=== PATIENT | male | born 1950 | race Caucasian/White ===

== ENCOUNTER 2018-02-05 19:49 | Inpatient (IN) | payer OTHER, MEDICARE ==
--- NOTE | 2018-02-05 21:21 | RADIOLOGY REPORT (SQ) ---
EXAM DESCRIPTION: RIBS LEFT W/PA CHEST COMPLETED DATE/TIME: 02/05/2018 9:07 pm REASON FOR STUDY: fall COMPARISON: None. TECHNIQUE: Frontal view of the chest and additional views of the left ribs acquired. NUMBER OF VIEWS: Four view. LIMITATIONS: None. FINDINGS: FRONTAL CXR: No pneumothorax. No pleural effusion. No atelectasis or infiltrates. RIBS: Fractures of the 7th 8th and 9th posterior left ribs. OTHER: No other significant finding. IMPRESSION: No pneumothorax. Fractures of the 7th 8th and 9th posterior left ribs. COMMENT: SITE OF TRAUMA/COMPLAINT MARKED/STAMP COMPLETED: Yes TECHNICAL DOCUMENTATION: JOB ID: [id number] [employer]- All Rights Reserved Reading location - IP/workstation name: [email or web address]
[2018-02-05] MEDS ORDERED: OXYCODONE-ACETAMINOPHEN 5-325 MG TABLET PO ONE (22:41)
--- NOTE | 2018-02-05 22:45 | ER Document Report ---
ED Medical Screen (RME) - General Chief Complaint: Low Back Pain Stated Complaint: LEFT SIDE PAIN Time Seen by Provider: 02/05/18 22:33 Notes: Patient is a 59-year-old male who fell in the shower earlier this afternoon approximately 330. Patient states that he has left chest wall pain. Denies any shortness of breath, cough, chest pain. Denies any nausea, vomiting, abdominal pain. Patient denies any head injury, LOC. Patient on blood thinners. TRAVEL OUTSIDE OF THE [place] IN LAST 30 DAYS: No Past Medical History Renal/ Medical History: Denies: Hx Peritoneal Dialysis Physical Exam - Vital signs Vitals: Temp Pulse Resp BP Pulse Ox 97.9 F 76 18 138/70 H 97 02/05/18 20:27 02/05/18 20:27 02/05/18 20:02/05/18 20:02/05/18 20:27 - Notes Notes: PHYSICAL EXAMINATION: GENERAL: Well-appearing, well-nourished and in no acute distress. GCS 15 HEAD: Atraumatic, normocephalic. EYES: Pupils equal round and reactive to light, extraocular movements intact, sclera anicteric, conjunctiva are normal. NECK: Normal range of motion, supple without lymphadenopathy. Trachea midline LUNGS: Breath sounds clear to auscultation bilaterally and equal. No wheezes rales or rhonchi. Tender chest wall with superficial abrasion no evidence of flail segment, crepitus. HEART: Regular rate and rhythm without murmurs. Pulses intact all throughout. Musculoskeletal: Normal range of motion, no pitting or edema. No cyanosis. Hip non tender, stable. NEUROLOGICAL: Cranial nerves grossly intact. Normal speech, SKIN: Warm, No active bleeding Course - Vital Signs Vital signs: Temp Pulse Resp BP Pulse Ox 97.9 F 76 18 138/70 H 97 02/05/18 20:27 02/05/18 20:27 02/05/18 20:27 02/05/18 20:02/05/18 20:27
[2018-02-05] MEDS ORDERED: HYDROMORPHONE HCL INJ/PF 2 MG/ML AMPULE IV ONE (22:58)
[2018-02-05] MEDS ORDERED: ONDANSETRON HCL INJ/PF 4 MG/2 ML SDV IV ONE (22:58)
--- NOTE | 2018-02-05 23:02 | ER Document Report ---
ED Fall - General Chief Complaint: Low Back Pain Stated Complaint: LEFT SIDE PAIN Time Seen by Provider: 02/05/18 22:33 Mode of Arrival: Ambulatory Information source: Patient TRAVEL OUTSIDE OF THE [place] IN LAST 30 DAYS: No - HPI Patient complains to provider of: fall, left posterior rib pain Notes: Patient is here with his at the bedside. He is here with complaints of left posterior chest wall pain. Patient states that he was in the shower when he slipped and fell and injured his left posterior ribs. He denies striking his head. He denies being on blood thinning medications. Complains of significant pain to the posterior ribs. Pain is worse with any sort of movement. He denies any shortness of breath. He denies any abdominal pain. He denies any nausea, vomiting, diarrhea. He denies this, tingling, weakness. He denies any blurred or loss vision. No headache. No numbness, tingling, weakness. No dysuria. No other complaints at this time. Patient denies any other injuries at this time. Past Medical History - Social History Smoking Status: Current Every Day Smoker Family History: Reviewed & Not Pertinent Patient has suicidal ideation: No Patient has homicidal ideation: No Renal/ Medical History: Denies: Hx Peritoneal Dialysis Review of Systems - Review of Systems -: Yes All other systems reviewed and negative Physical Exam - Vital signs Vitals: Temp Pulse Resp BP Pulse Ox 97.9 F 76 18 138/70 H 97 02/05/18 20:27 02/05/18 20:27 02/05/18 20:27 02/05/18 20:27 02/05/18 20:27 - Notes Notes: GENERAL: alert, cooperative, nontoxic, no distress. HEAD: normocephalic, atraumatic EYES: conjunctiva pink without discharge, no external redness or swelling. PERRL , EOM'S INTACT EARS: no external swelling, no external redness. No hemotympanum EM NOSE: atraumatic, no external swelling. No bleeding MOUTH/THROAT: mucous membranes moist and pink, posterior pharynx without erythema, swelling, exudate. No trismus or drooling. NECK: soft, supple, full range of motion, no meningismus. No midline tenderness step-offs or crepitus to palpation of the cervical spine. CHEST: no distress, lungs clear and equal throughout. No wheezing, rales, rhonchi. Abrasion and ecchymosis to the left posterior ribs. No crepitus. Significant tenderness to palpation of this area. CARDIAC: regular rate and rhythm, no murmur, normal capillary refill, normal pulses. No peripheral edema noted. ABDOMEN: Soft, nontender. No ecchymosis. BACK: Limited range of motion secondary to left posterior rib pain. No midline tenderness step-offs or crepitus to palpation of the thoracic or lumbar spine. EXTREMITIES: full range of motion of all extremities. No redness, no swelling. NEURO: alert and oriented x 3, no focal deficits, full range of motion of all extremities. Cranial nerves II through XII are grossly intact. Normal sensation bilaterally. Normal strength bilaterally. PYSCH: appropriate mood, affect. Patient is cooperative. SKIN: pink, warm, dry, no rash. Course - Re-evaluation Re-evalutation: 02/06/18 02:49 Patient is nontoxic appearing with stable vitals. The patient is noted to have 3 rib fractures with small pleural effusion on CT. Abdomen pelvis are negative. Labs are otherwise unremarkable. The patient was given Dilaudid for pain control. At this point patient states that he has feels like he is having way too much pain to be discharged home and is not able to ambulate without significant pain. Due to the patient's pain complaints and his 's concern for potentially not being able to get him into the condo, I have consulted the hospitalist for potential admission for pain control for rib fractures. Patient is being seen and evaluated by the nighttime hospitalist at this time. 02/06/18 02:55 Dr Fuentes agrees with admission. - Vital Signs Vital signs: Temp Pulse Resp BP Pulse Ox 97.9 F 76 18 138/70 H 97 02/05/18 20:27 02/05/18 20:27 02/05/18 20:27 02/05/18 20:27 02/05/18 20:27 - Laboratory Result Diagrams: 02/05/18 23:26 02/05/18 23:26 Laboratory results interpreted by me: 02/05/18 02/05/18 23:26 23:26 RBC 4.29 L MCV 100 H MCH 34.3 H Sodium 129.1 L Chloride 93 L BUN 5 L Creatinine 0.51 L AST 72 H - Diagnostic Test Radiology reviewed: Image reviewed, Reports reviewed - Chest x-ray shows 3 rib fractures to the left posterior ribs. CT chest abdomen pelvis shows rib fractures with small pleural effusion. Discharge - Discharge Clinical Impression: Pleural effusion, Intractable pain Ribs, multiple fractures Qualifiers: Encounter type: initial encounter Fracture type: closed Laterality: left Qualified Code(s): S22.42XA - Multiple fractures of ribs, left side, initial encounter for closed fracture Condition: Stable Disposition: ADMITTED OBSERVATION Admitting Provider: Hospitalist Unit Admitted: Medical Floor
[2018-02-05 23:53] LABS: ABSOLUTE BASOPHILS # (AUTO) 0.1 10^3/uL (0.0-0.2); ABSOLUTE EOSINOPHILS # (AUTO) 0.1 10^3/uL (0.0-0.6); ABSOLUTE LYMPHOCYTES (AUTO) 1.8 10^3/uL (0.5-4.7); ABSOLUTE MONOCYTES (AUTO) 0.9 10^3/uL (0.1-1.4); ABSOLUTE NEUT (AUTO) 4.2 10^3/uL (1.7-8.2); BASOPHILS % (AUTO) 0.8 % (0-2); EOSINOPHILS % (AUTO) 1.3 % (0-6); HEMATOCRIT 42.8 % (37.9-51.0); HEMOGLOBIN 14.7 g/dL (13.5-17.0); LYMPHOCYTES % (AUTO) 25.5 % (13-45); MEAN CORPUSCULAR HEMOGLOBIN 34.3 pg (27.0-33.4); MEAN CORPUSCULAR HGB CONC 34.4 g/dL (32.0-36.0); MEAN CORPUSCULAR VOLUME 100 fl (80-97); MONOCYTES % (AUTO) 12.8 % (3-13); PLATELET COUNT 157 10^3/uL (150-450); RED BLOOD COUNT 4.29 10^6/uL (4.35-5.55); RED CELL DISTRIBUTION WIDTH 12.5 % (11.5-14.0); SEGMENTED NEUTROPHILS % (AUTO) 59.6 % (42-78); TOTAL CELLS COUNTED % (AUTO) 100 %
[2018-02-06 00:02] LABS: ALANINE AMINOTRANSFERASE 72 U/L (21-72); ALBUMIN 4.2 g/dL (3.5-5.0); ALKALINE PHOSPHATASE 94 U/L (38-126); ANION GAP 11 (5-19); ASPARTATE AMINO TRANSFERASE 72 U/L (17-59); BILIRUBIN,DIRECT 0.3 mg/dL (0.0-0.4); BILIRUBIN,TOTAL 0.7 mg/dL (0.2-1.3); BLOOD UREA NITROGEN 5 mg/dL (7-20); CALCIUM 9.5 mg/dL (8.4-10.2); CARBON DIOXIDE 25 mmol/L (22-30); CHLORIDE 93 mmol/L (98-107); GLUCOSE 93 mg/dL (75-110); SODIUM 129.1 mmol/L (137-145); TOTAL PROTEIN 6.9 g/dL (6.3-8.2)
--- NOTE | 2018-02-06 02:06 | RADIOLOGY REPORT (SQ) ---
EXAM DESCRIPTION: CT ABDOMEN AND PELVIS WITH CONTRAST CLINICAL HISTORY: fall, left posterior rib fractures bilateral lower abdominal pain. COMPARISON: None Available. TECHNIQUE: CT of the abdomen and pelvis performed following IV administration of 100 mL of Isovue-370. DLP: 1504.24 mGycm FINDINGS: Bones: No destructive bone lesions identified. Degenerative spondylosis of the thoracic spine. Nondisplaced fractures of the left lateral seventh through ninth rib fractures. Chest: Thyroid:No abnormalities of the visualized thyroid. Great Vessels:Great vessels have normal anatomic configuration. Thoracic Aorta: Atherosclerotic calcification of the thoracic aorta. Pulmonary arteries:The main pulmonary artery is not dilated. Heart: Coronary artery atherosclerosis. No cardiomegaly or significant pericardial effusion. Lymph Nodes:No enlarged mediastinal lymph nodes identified. Esophagus: Small hiatal hernia. Other:No additional findings. Lungs: Minimal left basilar atelectasis. Pleura: Small left pleural effusion. No pneumothorax identified. Trachea/Airways:No abnormalities of the visualized trachea or airways. Abdomen: Liver: The liver has normal size and density. No intrahepatic mass or biliary dilatation. Gallbladder: No calcified gallstones. Spleen, Pancreas, and Adrenal Glands: The spleen, pancreas, and adrenal glands are unremarkable. Kidneys: The kidneys have normal size and contour without evidence of solid mass or hydronephrosis. Bosniak class I left renal cyst. Mild inferior right renal ectopia. Vasculature: Aortoiliac atherosclerosis. IVC is unremarkable. The portal vein is patent. The proximal visceral and renal arteries are patent. Stomach: The stomach and duodenum have normal course. Other: No free intraperitoneal air. No free fluid or lymphadenopathy. Pelvis: Bladder: Urinary bladder is unremarkable. Bowel: Scattered diverticula of the colon without pericolic fat stranding. No dilated loops of large or small bowel. Appendix: The appendix is not definitely identified. No evidence of appendicitis. Pelvis: Prostate is not enlarged. IMPRESSION: 1. Acute nondisplaced fractures of the lateral left seventh and ninth ribs. 2. Minimal left-sided atelectasis and small left pleural effusion. No pneumothorax. 3. No acute abnormalities of the abdomen or pelvis identified. 4. Diverticulosis without evidence of acute diverticulitis. 5. Coronary artery atherosclerosis. 6. Small hiatal hernia. This exam was performed according to our departmental dose-optimization program, which includes automated exposure control, adjustment of the mA and/or kV according to patient size and/or use of iterative reconstruction technique.
[2018-02-06] MEDS ORDERED: ONDANSETRON HCL INJ/PF 4 MG/2 ML SDV IV PRN ×2 (03:36→08:30)
[2018-02-06] MEDS ORDERED: OXYCODONE-ACETAMINOPHEN 5-325 MG TABLET PO PRN ×2 (03:36→15:06)
[2018-02-06] MEDS ORDERED: LORAZEPAM INJ 2 MG/1 ML VIAL IV PRN ×2 (03:39→15:03)
[2018-02-06] MEDS ORDERED: THIAMINE HCL 100 MG, FOLIC ACID 1 MG in NORMAL SALINE 250 ML IV ONE ×2 (04:00→04:15)
[2018-02-06] MEDS ORDERED: THIAMINE HCL INJ 200 MG/2 ML VIAL IV PRN (04:08)
[2018-02-06] MEDS ORDERED: FOLIC ACID INJ 5 MG/1 ML 10 ML VIAL IV PRN (04:09)
[2018-02-06] MEDS ORDERED: THIAMINE HCL INJ 200 MG/2 ML VIAL ONE (04:10)
[2018-02-06] MEDS ORDERED: FOLIC ACID INJ 5 MG/1 ML 10 ML VIAL ONE (04:11)
[2018-02-06] MEDS ORDERED: DIAZEPAM 5 MG TABLET PO ONE ×2 (04:15→15:15)
--- NOTE | 2018-02-06 04:57 | PDOC H&P ---
History of Present Illness Admission Date/PCP: 02/06/18 03:16 History of Present Illness: AKBAR CORONADO is a 67 year old male patient from [place] came to [place] for vacation. He presents with chief complaint of chest pain. Last night while taking shower, he slipped fell down and sustained injury to his left chest. Patient was thoroughly worked up including CT of the chest which revealed a nondisplaced fracture of the left lateral seventh through 9th ribs. Patient does not have any significant medical problem except daily alcohol consumption. He claims he drinks 10 cans of beer on a daily basis. During my encounter I seen patient with excruciating chest pain. At the time of injury no loss of consciousness, trauma to his head, or vomiting. No palpitation, chest pain or diaphoresis. Past Medical History Medical History: None Past Surgical History Past Surgical History: Reports: None Social History Smoking Status: Current Every Day Smoker Frequency of Alcohol Use: Heavy Family History Family History: Reviewed & Not Pertinent Parental Family History Reviewed: Yes Children Family History Reviewed: Yes Sibling(s) Family History Reviewed.: Yes Medication/Allergy Allergies/Adverse Reactions: No Known Allergies Allergy (Unverified 02/06/18 03:07) Review of Systems Constitutional: PRESENT: as per HPI Ears: PRESENT: as per HPI Cardiovascular: PRESENT: as per HPI Gastrointestinal: PRESENT: as per HPI Musculoskeletal: PRESENT: as per HPI Neurological: PRESENT: as per HPI Physical Exam Vital Signs: Temp Pulse Resp BP Pulse Ox 98 F 74 16 118/61 94 02/06/18 04:32 02/06/18 04:32 02/06/18 04:32 02/06/18 04:32 02/06/18 04:32 General appearance: PRESENT: no acute distress Head exam: PRESENT: atraumatic Respiratory exam: PRESENT: clear to auscultation lydia. ABSENT: rales, rhonchi, wheezes Cardiovascular exam: PRESENT: RRR. ABSENT: diastolic murmur, rubs, systolic murmur GI/Abdominal exam: PRESENT: normal bowel sounds, soft. ABSENT: distended, guarding, mass, organolmegaly, rebound, tenderness Musculoskeletal exam: PRESENT: other - Tenderness on his left chest Results Impressions: Ribs w/Chest X-Ray 02/05/18 00:00 IMPRESSION: No pneumothorax. Fractures of the 7th 8th and 9th posterior left ribs. Abdomen/Pelvis CT 02/06/18 00:00 IMPRESSION: 1. Acute nondisplaced fractures of the lateral left seventh and ninth ribs. 2. Minimal left-sided atelectasis and small left pleural effusion. No pneumothorax. 3. No acute abnormalities of the abdomen or pelvis identified. 4. Diverticulosis without evidence of acute diverticulitis. 5. Coronary artery atherosclerosis. 6. Small hiatal hernia. This exam was performed according to our departmental dose-optimization program, which includes automated exposure control, adjustment of the mA and/or kV according to patient size and/or use of iterative reconstruction technique. Chest CT 02/06/18 00:00 IMPRESSION: 1. Acute nondisplaced fractures of the lateral left seventh and ninth ribs. 2. Minimal left-sided atelectasis and small left pleural effusion. No pneumothorax. 3. No acute abnormalities of the abdomen or pelvis identified. 4. Diverticulosis without evidence of acute diverticulitis. 5. Coronary artery atherosclerosis. 6. Small hiatal hernia. This exam was performed according to our departmental dose-optimization program, which includes automated exposure control, adjustment of the mA and/or kV according to patient size and/or use of iterative reconstruction technique. Assessment & Plan - Diagnosis (1) Alcohol abuse Is this a current diagnosis for this admission?: Yes Plan: Patient advised to cut down his alcohol consumption. To prevent alcohol withdrawal patient has been started on as needed Ativan and scheduled diazepam. (3) Ribs, multiple fractures Qualifiers: Encounter type: initial encounter Fracture type: closed Laterality: left Qualified Code(s): S22.42XA - Multiple fractures of ribs, left side, initial encounter for closed fracture Is this a current diagnosis for this admission?: Yes Plan: Pain controlled - Time Critical Time spent with patient: 25-34 minutes
[2018-02-06] MEDS ORDERED: LANSOPRAZOLE 30 MG TAB.RAP.DR PO SCH (06:00)
[2018-02-06] MEDS ORDERED: ENOXAPARIN SODIUM INJ 40 MG/0.4 ML DISP.SYRIN SUBCUT SCH (10:00)
[2018-02-06] MEDS: NICOTINE 21 MG/24 HR PATCH.TD24 TD SCH (12:47)
[2018-02-06] MEDS ORDERED: ENOXAPARIN SODIUM INJ 40 MG/0.4 ML DISP.SYRIN SUBCUT ONE (13:00)
[2018-02-06 13:25] LABS: APPEARANCE,URINE CLEAR; BILIRUBIN,URINE NEGATIVE (NEGATIVE); COLOR,URINE YELLOW; GLUCOSE, URINE NEGATIVE (NEGATIVE); KETONES,URINE 20 mg/dL (NEGATIVE); LEUKOCYTE ESTERASE,URINE NEGATIVE (NEGATIVE); NITRITE,URINE NEGATIVE (NEGATIVE); PROTEIN,URINE NEGATIVE (NEGATIVE); URINE SPECIFIC GRAVITY 1.023; UROBILINOGEN,URINE NEGATIVE mg/dL (<2.0)
[2018-02-06] MEDS ORDERED: DIAZEPAM 5 MG TABLET PO SCH (14:00)
--- NOTE | 2018-02-06 17:16 | PDOC CONSULTATION ---
History of Present Illness Admission Date/PCP: 02/06/18 03:16 Chest pain and hip pain. History of Present Illness: AKBAR CORONADO is a 67 year old male status post fall with bruising and pain in the left hip and also bruising on the left chest wall. Denies any numbness or tingling or paresthesias. Denies any shortness of breath. Fall occurred last night. Patient was brought to the ER where he was evaluated. Patient was admitted under hospitalist service but orthopedic consulted for the hematoma of the left hip. Denies any numbness or tingling or paresthesias and describes the pain mostly when he lays on it or weightbears. No pain in the groin. Past Surgical History Past Surgical History: Reports: None Social History Smoking Status: Current Every Day Smoker Cigarettes Packs Per Day: 0.5 Number of Years Smokin Last Time Smoked: 02/05/2018 Frequency of Alcohol Use: Heavy Hx Recreational Drug Use: No Drugs: None Hx Prescription Drug Abuse: No Family History Family History: None Parental Family History Reviewed: No Children Family History Reviewed: Yes Sibling(s) Family History Reviewed.: Yes Medication/Allergy Home Medications: No Home Medications 02/06/18 Allergies/Adverse Reactions: No Known Allergies Allergy (Unverified 02/06/18 03:07) Review of Systems Constitutional: ABSENT: anorexia, fever(s), weight gain, weight loss Eyes: ABSENT: visual disturbances Ears: ABSENT: hearing changes Nose, Mouth, and Throat: ABSENT: headache(s), sore throat Cardiovascular: ABSENT: edema, palpitations Respiratory: ABSENT: dyspnea, hemoptysis Gastrointestinal: ABSENT: hematemesis, nausea, vomiting Genitourinary: ABSENT: dysuria, hematuria Musculoskeletal: ABSENT: buckling, catching, deformity, dislocation Integumentary: PRESENT: lesions - 3 x 3 cm hematoma left hip with ecchymosis.. ABSENT: wounds Neurological: ABSENT: numbness, paresthesias, tingling Psychiatric: ABSENT: hallucinations, homidical ideation, suicidal ideation Endocrine: ABSENT: cold intolerance, heat intolerance Hematologic/Lymphatic: ABSENT: easy bleeding, lymphadenopathy Allergic/Immunologic: ABSENT: seasonal rhinorrhea Physical Exam Vital Signs: Temp Pulse Resp BP Pulse Ox 37.0 C 71 16 117/65 97 02/06/18 12:00 02/06/18 12:00 02/06/18 12:00 02/06/18 12:00 02/06/18 12:00 General appearance: PRESENT: no acute distress Eye exam: ABSENT: EOMI, nystagmus Ear exam: PRESENT: normal external ear exam Mouth exam: PRESENT: neck supple Neck exam: ABSENT: lymphadenopathy, tenderness, thyromegaly Respiratory exam: PRESENT: symmetrical, unlabored. ABSENT: accessory muscle use , tachypnea Pulses: PRESENT: +2 pedal pulses bilateral Vascular exam: PRESENT: normal capillary refill GI/Abdominal exam: PRESENT: soft. ABSENT: tenderness Musculoskeletal exam: PRESENT: full ROM, tenderness - Tenderness over the greater trochanter. Ecchymosis and small hematoma present. Neurovascular intact distally.. ABSENT: deformity Neurological exam: PRESENT: alert, awake, oriented to person, oriented to place , oriented to time, oriented to situation Psychiatric exam: PRESENT: appropriate affect, normal mood Skin exam: PRESENT: intact. ABSENT: erythema, rash, skin tears Adult Front & Back Image: 1 - Bruising and ecchymosis on the lateral aspect of the left hip. Full range of motion of the hip with no pain. No groin pain. Tender palpation of the hematoma and ecchymosis. Results Laboratory Results: 02/06/18 13:15 Urine Color YELLOW Urine Appearance CLEAR Urine pH 6.0 Ur Specific [place] 1.023 Urine Protein NEGATIVE Urine Glucose (UA) NEGATIVE Urine Ketones 20 H Urine Blood NEGATIVE Urine Nitrite NEGATIVE Ur Leukocyte Esterase NEGATIVE Urine WBC (Auto) 0 Urine RBC (Auto) 1 Impressions: Ribs w/Chest X-Ray 02/05/18 00:00 IMPRESSION: No pneumothorax. Fractures of the 7th 8th and 9th posterior left ribs. Abdomen/Pelvis CT 02/06/18 00:00 IMPRESSION: 1. Acute nondisplaced fractures of the lateral left seventh and ninth ribs. 2. Minimal left-sided atelectasis and small left pleural effusion. No pneumothorax. 3. No acute abnormalities of the abdomen or pelvis identified. 4. Diverticulosis without evidence of acute diverticulitis. 5. Coronary artery atherosclerosis. 6. Small hiatal hernia. This exam was performed according to our departmental dose-optimization program, which includes automated exposure control, adjustment of the mA and/or kV according to patient size and/or use of iterative reconstruction technique. Chest CT 02/06/18 00:00 IMPRESSION: 1. Acute nondisplaced fractures of the lateral left seventh and ninth ribs. 2. Minimal left-sided atelectasis and small left pleural effusion. No pneumothorax. 3. No acute abnormalities of the abdomen or pelvis identified. 4. Diverticulosis without evidence of acute diverticulitis. 5. Coronary artery atherosclerosis. 6. Small hiatal hernia. This exam was performed according to our departmental dose-optimization program, which includes automated exposure control, adjustment of the mA and/or kV according to patient size and/or use of iterative reconstruction technique. Assessment & Plan - Diagnosis (1) Hematoma Is this a current diagnosis for this admission?: Yes Plan: 67-year-old gentleman status post fall with ecchymosis bruising and small hematoma in the left thigh. Patient does not need any surgical intervention or evacuation of hematoma. This will resolve on its own and we observed in the next several weeks. Pertaining to the ribs I will defer that to general surgery. Although it is fracture in the bone will heal due to the fact this in the chest cavity is always concern for hemothorax and pneumothorax and this is out of the scope of my practice. Discussed with patient that pain and swelling will resolve and without time and just needs pain control weight-bear as tolerated and follow-up as needed.
--- NOTE | 2018-02-06 17:17 | Progress Note ---
Provider Note Provider Note: Agree with supervisor shipfitters plan of care for AKBAR CORONADO, a 67 year old male who slipped and fell getting out of the bathtub, sustaining an injury to his left chest. CT confirms nondisplaced fracture of the left lateral seventh through ninth ribs. According to the , the patient has a history of heavy EtOH use. She states he drinks approximately 10 beers per day. Additionally, the endorses the patient smokes roughly half a pack per day for the last 20 years. 1.ETOH ABUSE: 10 drinks per day. PRN IV Ativan and scheduled PO Valium. Maintenance IVF 2. RIB FRACTURES: s/p mechanical fall. Dilaudid and percocet for pain control. Initiate lidoderm patch. Consulted ortho and surgery to see if they have any specific recommendations for his rehabilitation. 3. TOBACCO USE: initiate nicotine patch
[2018-02-06] MEDS ORDERED: LIDOCAINE 5% (700 MG) TRANSDERMAL ADH..PATCH TP ONE (20:00)
[2018-02-06] MEDS ORDERED: MORPHINE SULFATE 10 MG/ML INJ IV PRN (20:18)
[2018-02-06] MEDS: NORMAL SALINE 1000 ML 1,000 ML IV PRN (20:25)
--- NOTE | 2018-02-06 20:30 | PDOC CONSULTATION ---
Consultation Consult Date: 02/06/18 Consult reason:: non displaced fx left 7th-9th ribs History of Present Illness Admission Date/PCP: 02/06/18 03:16 History of Present Illness: AKBAR CORONADO is a 67 year old male who sustained a fall and injured left ribs likely on the edge of bathtub the night of 02/05/18. C/O severe left chest pains and went to ED where a CT scan of the chest showed a non displaced lateral 7th - 9th ribs fx. Drinks about 10 bottles of beer a day. Past Surgical History Past Surgical History: Reports: None Social History Smoking Status: Current Every Day Smoker Cigarettes Packs Per Day: 0.5 Number of Years Smokin Last Time Smoked: 02/05/2018 Frequency of Alcohol Use: Heavy Hx Recreational Drug Use: No Drugs: None Hx Prescription Drug Abuse: No Family History Family History: None Parental Family History Reviewed: Yes Children Family History Reviewed: No Sibling(s) Family History Reviewed.: No Medication/Allergy Home Medications: No Home Medications 02/06/18 Allergies/Adverse Reactions: No Known Allergies Allergy (Unverified 02/06/18 03:07) Review of Systems Constitutional: PRESENT: other - no chills/fever Eyes: PRESENT: other - no visual/hearing changes Cardiovascular: PRESENT: chest pain - especially on coughing Respiratory: PRESENT: cough Gastrointestinal: PRESENT: other - no abdominal pains Genitourinary: PRESENT: other - no dysuria Neurological: PRESENT: other - no seizures Endocrine: PRESENT: other - no polyuria Hematologic/Lymphatic: PRESENT: other - no easy bruising Physical Exam Vital Signs: Temp Pulse Resp BP Pulse Ox 98.6 F 71 16 117/65 97 02/06/18 12:00 02/06/18 12:00 02/06/18 12:00 02/06/18 12:00 02/06/18 12:00 Intake & Output 02/05/18 02/06/18 02/07/18 06:59 06:59 06:59 Intake Total 100 Output Total 100 Balance 0 General appearance: PRESENT: mild distress Head exam: PRESENT: atraumatic Eye exam: PRESENT: conjunctiva pink Mouth exam: PRESENT: moist Neck exam: PRESENT: full ROM Respiratory exam: PRESENT: chest wall tenderness - left lateral chest, clear to auscultation lydia Cardiovascular exam: PRESENT: RRR Pulses: PRESENT: normal radial pulses Vascular exam: PRESENT: normal capillary refill GI/Abdominal exam: PRESENT: soft Rectal exam: PRESENT: deferred Extremities exam: PRESENT: full ROM Musculoskeletal exam: PRESENT: ambulatory Neurological exam: PRESENT: alert, oriented to person, oriented to place, oriented to time, oriented to situation Psychiatric exam: PRESENT: appropriate affect Skin exam: PRESENT: normal color, warm Results Laboratory Results: 02/06/18 13:15 Urine Color YELLOW Urine Appearance CLEAR Urine pH 6.0 Ur Specific [place] 1.023 Urine Protein NEGATIVE Urine Glucose (UA) NEGATIVE Urine Ketones 20 H Urine Blood NEGATIVE Urine Nitrite NEGATIVE Ur Leukocyte Esterase NEGATIVE Urine WBC (Auto) 0 Urine RBC (Auto) 1 Impressions: Ribs w/Chest X-Ray 02/05/18 00:00 IMPRESSION: No pneumothorax. Fractures of the 7th 8th and 9th posterior left ribs. Abdomen/Pelvis CT 02/06/18 00:00 IMPRESSION: 1. Acute nondisplaced fractures of the lateral left seventh and ninth ribs. 2. Minimal left-sided atelectasis and small left pleural effusion. No pneumothorax. 3. No acute abnormalities of the abdomen or pelvis identified. 4. Diverticulosis without evidence of acute diverticulitis. 5. Coronary artery atherosclerosis. 6. Small hiatal hernia. This exam was performed according to our departmental dose-optimization program, which includes automated exposure control, adjustment of the mA and/or kV according to patient size and/or use of iterative reconstruction technique. Chest CT 02/06/18 00:00 IMPRESSION: 1. Acute nondisplaced fractures of the lateral left seventh and ninth ribs. 2. Minimal left-sided atelectasis and small left pleural effusion. No pneumothorax. 3. No acute abnormalities of the abdomen or pelvis identified. 4. Diverticulosis without evidence of acute diverticulitis. 5. Coronary artery atherosclerosis. 6. Small hiatal hernia. This exam was performed according to our departmental dose-optimization program, which includes automated exposure control, adjustment of the mA and/or kV according to patient size and/or use of iterative reconstruction technique. Assessment & Plan - Time Time Spent: 30 to 50 Minutes - Plan Summary Plan Summary: Agree with anti alcohol withdrawal mx Pain mx with scheduled percocet and prn Morphine Incentive spirometry
[2018-02-07] MEDS: DIAZEPAM 5 MG TABLET PO SCH ×2 (00:29→07:59)
[2018-02-07] MEDS: OXYCODONE-ACETAMINOPHEN 5-325 MG TABLET PO SCH ×3 (00:34→07:58)
[2018-02-07] MEDS: NORMAL SALINE 1000 ML 1,000 ML IV PRN (04:13)
[2018-02-07 05:57] LABS: HEMATOCRIT 37.6 % (37.9-51.0); HEMOGLOBIN 13.2 g/dL (13.5-17.0); MEAN CORPUSCULAR HEMOGLOBIN 35.1 pg (27.0-33.4); MEAN CORPUSCULAR VOLUME 100 fl (80-97); PLATELET COUNT 132 10^3/uL (150-450); RED BLOOD COUNT 3.75 10^6/uL (4.35-5.55); RED CELL DISTRIBUTION WIDTH 12.2 % (11.5-14.0); WHITE BLOOD COUNT 5.4 10^3/uL (4.0-10.5)
[2018-02-07] MEDS ORDERED: LANSOPRAZOLE 30 MG TAB.RAP.DR PO SCH (06:00)
[2018-02-07 06:15] LABS: ANION GAP 10 (5-19); BLOOD UREA NITROGEN 7 mg/dL (7-20); CALCIUM 8.3 mg/dL (8.4-10.2); CARBON DIOXIDE 27 mmol/L (22-30); CHLORIDE 97 mmol/L (98-107); GLUCOSE 110 mg/dL (75-110); PHOSPHORUS 3.5 mg/dL (2.5-4.5); SODIUM 133.7 mmol/L (137-145)
[2018-02-07] MEDS: NICOTINE 21 MG/24 HR PATCH.TD24 TD SCH (09:44)
[2018-02-07] MEDS ORDERED: ENOXAPARIN SODIUM INJ 40 MG/0.4 ML DISP.SYRIN SUBCUT SCH (10:00)
[2018-02-07] MEDS ORDERED: THIAMINE HCL 100 MG, FOLIC ACID 1 MG in NORMAL SALINE 250 ML IV SCH ×13 (10:00)
[2018-02-07] MEDS ORDERED: LIDOCAINE 5% (700 MG) TRANSDERMAL ADH..PATCH TP SCH (10:00)
--- NOTE | 2018-02-07 10:22 | PDOC PROGRESS REPORT ---
Subjective Progress Note for:: 02/07/18 Subjective:: This is a 67-year-old male who fell from standing and hit his left chest. Patient sustained several nondisplaced rib fractures and a hip hematoma. Today , the patient complains of pain with coughing and inspiration. He denies any shortness of breath, nausea, vomiting, diarrhea, dizziness, orthostasis. Nurses report that he is somewhat unsteady with walking. Reason For Visit: STATUS POST FALL RIB FRACTURE Physical Exam Vital Signs: Temp Pulse Resp BP Pulse Ox 97.3 F 62 18 144/67 H 97 02/07/18 07:33 02/07/18 07:33 02/07/18 07:33 02/07/18 07:33 02/07/18 07:33 Intake & Output 02/06/18 02/07/18 02/08/18 06:59 06:59 06:59 Intake Total 1730 Output Total 150 Balance 1580 Weight 80.2 kg General appearance: PRESENT: no acute distress Head exam: PRESENT: atraumatic, normocephalic Eye exam: PRESENT: EOMI, PERRLA. ABSENT: conjunctival injection, scleral icterus Mouth exam: PRESENT: neck supple Teeth exam: ABSENT: poor dentation Neck exam: ABSENT: lymphadenopathy, meningismus, tenderness, thyromegaly, tracheal deviation Respiratory exam: PRESENT: chest wall tenderness - Left side, decreased breath sounds Cardiovascular exam: PRESENT: RRR GI/Abdominal exam: PRESENT: soft. ABSENT: distended, guarding, tenderness Extremities exam: PRESENT: other. ABSENT: clubbing Neurological exam: PRESENT: alert, awake, oriented to person, oriented to place , oriented to time, oriented to situation Psychiatric exam: ABSENT: agitated, anxious, depressed Skin exam: ABSENT: cyanosis, jaundice Results Laboratory Results: 02/07/18 05:09 02/07/18 05:09 02/06/18 02/07/18 02/07/18 13:15 05:09 05:09 WBC 5.4 RBC 3.75 L Hgb 13.2 L Hct 37.6 L MCV 100 H MCH 35.1 H MCHC 35.0 RDW 12.2 Plt Count 132 L Sodium 133.7 L Potassium 4.0 Chloride 97 L Carbon Dioxide 27 Anion Gap 10 BUN 7 Creatinine 0.57 Est GFR ( Amer) > 60 Est GFR (Non-Af Amer) > 60 Glucose 110 Calcium 8.3 L Phosphorus 3.5 Magnesium 1.8 Urine Color YELLOW Urine Appearance CLEAR Urine pH 6.0 Ur Specific [place] 1.023 Urine Protein NEGATIVE Urine Glucose (UA) NEGATIVE Urine Ketones 20 H Urine Blood NEGATIVE Urine Nitrite NEGATIVE Ur Leukocyte Esterase NEGATIVE Urine WBC (Auto) 0 Urine RBC (Auto) 1 Impressions: Ribs w/Chest X-Ray 02/05/18 00:00 IMPRESSION: No pneumothorax. Fractures of the 7th 8th and 9th posterior left ribs. Abdomen/Pelvis CT 02/06/18 00:00 IMPRESSION: 1. Acute nondisplaced fractures of the lateral left seventh and ninth ribs. 2. Minimal left-sided atelectasis and small left pleural effusion. No pneumothorax. 3. No acute abnormalities of the abdomen or pelvis identified. 4. Diverticulosis without evidence of acute diverticulitis. 5. Coronary artery atherosclerosis. 6. Small hiatal hernia. This exam was performed according to our departmental dose-optimization program, which includes automated exposure control, adjustment of the mA and/or kV according to patient size and/or use of iterative reconstruction technique. Chest CT 02/06/18 00:00 IMPRESSION: 1. Acute nondisplaced fractures of the lateral left seventh and ninth ribs. 2. Minimal left-sided atelectasis and small left pleural effusion. No pneumothorax. 3. No acute abnormalities of the abdomen or pelvis identified. 4. Diverticulosis without evidence of acute diverticulitis. 5. Coronary artery atherosclerosis. 6. Small hiatal hernia. This exam was performed according to our departmental dose-optimization program, which includes automated exposure control, adjustment of the mA and/or kV according to patient size and/or use of iterative reconstruction technique. Assessment & Plan - Plan Summary Plan Summary: 67-year-old male status post fall. He has several nondisplaced rib fractures on the left. He has no other significant injuries. I will institute incentive spirometry. The patient should undergo an aggressive pulmonary toilet regimen. I will add ibuprofen 3 times daily to the patient's medication list. I have encouraged the patient to ambulate as much as possible with aggressive coughing and deep breathing. From a trauma/surgery standpoint, the patient is cleared for discharge. Further workup per his medical team.
[2018-02-07 11:03] VITALS: BP 117/65
[2018-02-07] MEDS ORDERED: IBUPROFEN 800 MG TABLET PO SCH (12:00)
== END 2018-02-07 12:32 | disposition hospice, inpatient (51) | DRG 185 ==
LOC: ER 19:49 → EH 02-06 03:16 → UNDOADMIN 02-06 03:16 → OBSVTOIN 02-06 03:16 → EH 02-06 03:16 → 4W 02-06 09:07
PROVIDERS: ADMIT Internal Medicine; ATTEND Internal Medicine
DX: S22.42XA Multiple fractures of ribs, left side, initial encounter for closed fracture (principal); S70.02XA Contusion of left hip, initial encounter; W18.2XXA Fall in (into) shower or empty bathtub, initial encounter; F10.10 Alcohol abuse, uncomplicated; F17.210 Nicotine dependence, cigarettes, uncomplicated; Y93.E1 Activity, personal bathing and showering; Y92.002 Bathroom of unspecified non-institutional (private) residence as the place of occurrence of the external cause
CPT/HCPCS: 36415; 71260; 74177; 80048; 80053; 81001; 83735; 84100; 85025; 85027; 96374; 96375; 99285; J1170; J1650; J2060; J2270; J2405; J3411; J3490; J7030; J7050

== ENCOUNTER 2018-02-12 09:29 | Emergency (ER) | payer OTHER ==
[2018-02-12] MEDS ORDERED: NORMAL SALINE 1000 ML 1,000 ML IV ONE (09:57)
--- NOTE | 2018-02-12 09:58 | ER Document Report ---
ED Medical Screen (RME) - General Chief Complaint: Fever Stated Complaint: FEVER Time Seen by Provider: 02/12/18 09:54 TRAVEL OUTSIDE OF THE [place] IN LAST 30 DAYS: No - HPI Notes: 02/12/18 09:57 Fractured ribs 2 weeks ago and now has a fever of 102 coughing - Related Data Allergies/Adverse Reactions: No Known Allergies Allergy (Verified 02/12/18 09:31) Past Medical History - Social History Chew tobacco use (# tins/day): No Frequency of alcohol use: Heavy Drug Abuse: None Renal/ Medical History: Denies: Hx Peritoneal Dialysis - Immunizations History of Influenza Vaccine for 07/2017 - 12/2017 Season: Refused Review of Systems - Review of Systems Constitutional: Fever Respiratory: Cough Physical Exam - Vital signs Vitals: Temp Pulse Resp BP Pulse Ox 99.0 F 104 H 16 102/49 L 94 02/12/18 09:43 02/12/18 09:43 02/12/18 09:43 02/12/18 09:43 02/12/18 09:43 - HEENT Head: Normocephalic, Open wounds Conjunctiva: Normal Course - Vital Signs Vital signs: Temp Pulse Resp BP Pulse Ox 99.0 F 104 H 16 102/49 L 94 02/12/18 09:43 02/12/18 09:43 02/12/18 09:43 02/12/18 09:43 02/12/18 09:43
--- NOTE | 2018-02-12 10:22 | RADIOLOGY REPORT (SQ) ---
EXAM DESCRIPTION: CHEST 2 VIEWS COMPLETED DATE/TIME: 02/12/2018 10:09 am REASON FOR STUDY: sob COMPARISON: Chest E scan dated 02/06/2018 EXAM PARAMETERS: NUMBER OF VIEWS: two views TECHNIQUE: Digital Frontal and Lateral radiographic views of the chest acquired. RADIATION DOSE: NA LIMITATIONS: none FINDINGS: LUNGS AND PLEURA: Minimal left basilar densities are identified which were identified as a small left pleural effusion and associated atelectatic changes on the recent CT scan. Remaining herb g coburn are clear. MEDIASTINUM AND HILAR STRUCTURES: No masses or contour abnormalities. HEART AND VASCULAR STRUCTURES: Heart normal size. No evidence for failure. BONES: A slightly exaggerated thoracic kyphosis is identified and there is a minimal thoracic scolios is convex to the right. HARDWARE: None in the chest. OTHER: No other significant finding. IMPRESSION: Minimal left basilar densities as noted above. Remaining lung coburn are clear. Other findings as noted above TECHNICAL DOCUMENTATION: JOB ID: [id number] [employer]- All Rights Reserved Reading location - IP/workstation name: [email or web address]
[2018-02-12 10:46] LABS: ABSOLUTE BASOPHILS # (AUTO) 0.1 10^3/uL (0.0-0.2); ABSOLUTE EOSINOPHILS # (AUTO) 0.2 10^3/uL (0.0-0.6); ABSOLUTE LYMPHOCYTES (AUTO) 0.4 10^3/uL (0.5-4.7); ABSOLUTE MONOCYTES (AUTO) 1.3 10^3/uL (0.1-1.4); ABSOLUTE NEUT (AUTO) 5.2 10^3/uL (1.7-8.2); BASOPHILS % (AUTO) 0.7 % (0-2); EOSINOPHILS % (AUTO) 2.1 % (0-6); HEMATOCRIT 42.5 % (37.9-51.0); HEMOGLOBIN 15.3 g/dL (13.5-17.0); LYMPHOCYTES % (AUTO) 5.1 % (13-45); MEAN CORPUSCULAR HEMOGLOBIN 35.2 pg (27.0-33.4); MEAN CORPUSCULAR VOLUME 98 fl (80-97); PLATELET COUNT 239 10^3/uL (150-450); RED BLOOD COUNT 4.34 10^6/uL (4.35-5.55); RED CELL DISTRIBUTION WIDTH 12.5 % (11.5-14.0); SEGMENTED NEUTROPHILS % (AUTO) 74.1 % (42-78); TOTAL CELLS COUNTED % (AUTO) 100 %
--- NOTE | 2018-02-12 10:49 | ER Document Report ---
ED General - General Chief Complaint: Fever Stated Complaint: FEVER Time Seen by Provider: 02/12/18 09:54 TRAVEL OUTSIDE OF THE [place] IN LAST 30 DAYS: No - HPI Notes: 67-year-old male who presents with fever. Of note, patient had recently been admitted and subsequent discharge after fracturing 3 ribs in his left posterior lateral thorax. He has been taking intermittent pain medicine and Valium at home, but this seems to have caused some confusion at times. Over the last day and a half 2 days developed increasing cough and now fever this morning and is not feeling well. He has not fallen or injured his head. Denies any headache. His states sometimes he seems confused and sometimes this is normal. Pain is adequately controlled. He developed nasal congestion runny nose today. No other modifying factors, no other associated symptoms, no other provocative or palliative factors. - Related Data Allergies/Adverse Reactions: No Known Allergies Allergy (Verified 02/12/18 09:31) Past Medical History - Social History Smoking Status: Former Smoker Chew tobacco use (# tins/day): No Frequency of alcohol use: Heavy Drug Abuse: None Family History: None Patient has suicidal ideation: No Patient has homicidal ideation: No - Medical History Notes: Reviewed in the nursing notes, otherwise includes recent rib fractures Renal/ Medical History: Denies: Hx Peritoneal Dialysis Past Surgical History: Reports: Hx Orthopedic Surgery - x3 knee surgeries, shoulder surgery Review of Systems - Review of Systems Notes: Review of systems as in the history of present illness, otherwise negative. Physical Exam - Vital signs Vitals: Temp Pulse Resp BP Pulse Ox 99.0 F 104 H 16 102/49 L 94 02/12/18 09:43 02/12/18 09:43 02/12/18 09:43 02/12/18 09:43 02/12/18 09:43 - Notes Notes: General: Well developed . HEENT: Normocephalic, atraumatic. Pupils equal round reactive to light. No JVD. Chest: No trauma. Left posterior lateral thorax is mild tenderness. No acute bruising. Respiratory: Good air exchange, normal excursion. Cardiac: Regular rhythm. No murmurs or gallops. Abdomen: Soft, benign. Nondistended. Nontender. Back: No asymmetry or gross abnormality. Motor: Grossly normal power and tone. Neurologic: Alert, nonfocal. Cranial nerves II-12 are intact. Sensation intact. Vascular: Well perfused. Normal peripheral pulses. Skin: No petechiae or purpura. Course - Re-evaluation Re-evalutation: 02/12/18 10:48 67-year-old male presents with fever and increasing cough. In the face of recent rib fractures, I be concerned over splinting and subsequent development of pneumonia. He also incidentally developed some runny nose congestion and may be associated URI or viral illness. Consider underlying urinary source or other etiology as well. Plan to proceed with basic labs, chest x-ray, IV fluids. Of note, his significant other indicates that he has had decreased p.o. food and fluid intake. When I evaluated directly, he is alert and oriented 4, appropriate alert. He is nonfocal. I do not believe he needs any imaging or [employer] workup 02/12/18 12:05 Labs reviewed, no leukocytosis is noted. Chemistries are unremarkable. Urinalysis is somewhat equivocal, 1+ bacteria and some small weights. It is not clearly consistent with infection, will obtain culture. Patient's chest x-ray is read as showing resolute filtrate. Given his fever, this may be viral URI but I would still be concerned of her development of concomitant pneumonia. We will treat him with IV antibiotics in the ED, discharged home with a prescription for the same. Otherwise he has remained appropriate alert with no confusion. He does not meet criteria for sepsis syndrome. He will follow-up as discussed. I had extensive discussion with he and his with regard to his drinking, staying hydrated and good nutrition. - Vital Signs Vital signs: Temp Pulse Resp BP Pulse Ox 99.2 F 104 H 16 102/49 L 94 02/12/18 10:24 02/12/18 09:43 02/12/18 09:43 02/12/18 09:43 02/12/18 09:43 - Laboratory Result Diagrams: 02/12/18 08:45 02/12/18 08:45 Laboratory results interpreted by me: 02/12/18 02/12/18 02/12/18 08:45 08:45 11:04 RBC 4.34 L MCV 98 H MCH 35.2 H Lymphocytes % 5.1 L Monocytes % 18.0 H Absolute Lymphocytes 0.4 L Sodium 135.1 L Potassium 3.5 L Chloride 97 L Glucose 142 H Urine Protein 30 H Urine Ketones 20 H Urine Bilirubin SMALL H Urine Urobilinogen 4.0 H Discharge - Discharge Clinical Impression: Pneumonia Qualifiers: Pneumonia type: due to unspecified organism Laterality: left Lung location: unspecified part of lung Qualified Code(s): J18.9 - Pneumonia, unspecified organism Condition: Good Disposition: HOME, SELF-CARE Instructions: Pneumonia ([facility]) Prescriptions: Cefdinir [Omnicef 300 mg Capsule] 1 cap PO BID #14 capsule Referrals: HENNA PHIPPS MD [Primary Care Provider] - Follow up in 3-5 days
[2018-02-12 10:52] LABS: ANION GAP 14 (5-19); BLOOD UREA NITROGEN 10 mg/dL (7-20); CALCIUM 9.3 mg/dL (8.4-10.2); CARBON DIOXIDE 24 mmol/L (22-30); CHLORIDE 97 mmol/L (98-107); GLUCOSE 142 mg/dL (75-110); POTASSIUM 3.5 mmol/L (3.6-5.0); SODIUM 135.1 mmol/L (137-145)
[2018-02-12 11:41] LABS: APPEARANCE,URINE SLIGHTLY-CLOUDY; BILIRUBIN,URINE SMALL (NEGATIVE); GLUCOSE, URINE NEGATIVE (NEGATIVE); KETONES,URINE 20 mg/dL (NEGATIVE); LEUKOCYTE ESTERASE,URINE NEGATIVE (NEGATIVE); NITRITE,URINE NEGATIVE (NEGATIVE); PROTEIN,URINE 30 mg/dL (NEGATIVE)
[2018-02-12 11:42] LABS: COLOR,URINE DARK YELLOW
[2018-02-12] MEDS ORDERED: CEFTRIAXONE INJ 1000 MG VIAL IV ONE (11:58)
[2018-02-12 12:33] VITALS: BP 124/53
== END 2018-02-12 12:53 | disposition home or self-care (01) ==
LOC: ER 09:29
DX: J18.9 Pneumonia, unspecified organism (principal); R50.9 Fever, unspecified; R05 Cough; R09.81 Nasal congestion; Z87.891 Personal history of nicotine dependence
CPT/HCPCS: 99284; 96361; 96365; 36415; 87040; 87070; 87086; 87205; 83735; 85025; 87077; 80048; 81001; 87186; 71046; J0696; J7030